=== PATIENT | female | born 1965 | race Two or more races ===

== ENCOUNTER 2016-06-15 07:19 | Emergency (ER) | payer MEDICAID ==
[~2016-06-15] VITALS: Ht 160 cm; Wt 90.7 kg
[2016-06-15 07:58] LABS: Basophils # (auto) 0 uL; Basophils % (auto) 0.5 % (0.0-2.0); Eosinophils # (auto) 0.1 uL; Eosinophils % (auto) 1.6 % (0.0-7.0); Lymphocytes # (auto) 2.5 uL; Lymphocytes % (auto) 31.5 % (10.0-50.0); Mean Corpuscular Hemoglobin 27.7 pg (28.0-32.0); Mean Corpuscular Hgb Conc. 32.3 g/dL (32.0-36.0); Mean Platelet Volume 7.1 fL (7.4-10.4); Monocytes # (auto) 0.5 uL; Monocytes % (auto) 6.5 % (0.0-12.0); Neutrophils # (auto) 4.8 uL; Neutrophils % (auto) 59.9 % (37.0-80.0); Platelet Count (auto) 491 10^3/uL (140-450); Red Cell Distribution Width 15.9 % (11.6-16.0)
[2016-06-15 08:13] LABS: INR 1.01 (0.9-1.15); Partial Thromboplastin Time 25.4 sec (22.64-33.71); Prothrombin Time 10.4 sec (9.37-12.3)
[2016-06-15 08:14] LABS: BUN/Creatinine Ratio 15.2; Bilirubin, Total 0.5 mg/dL (0.2-1.0); Magnesium 2.3 mg/dL (1.6-2.6); Potassium 3.5 mmol/L (3.5-5.1); Total Protein 7.4 g/dL (6.4-8.2)
[2016-06-15 08:26] LABS: B-Type Natriuretic Peptide 7.96 pg/mL (0-100)
[2016-06-15] MEDS ORDERED: ACETAMINOPHEN 325 MG TAB PO ONE (09:30)
[2016-06-15 09:38] LABS: Temperature: 22.7 C (20.0-25.0)
[2016-06-15 09:57] VITALS: BP 133/70
== END 2016-06-15 09:58 | disposition home or self-care (01) ==
LOC: EDUNIT# 07:19 → ER 07:26
DX: R07.89 Other chest pain (principal); M19.90 Unspecified osteoarthritis, unspecified site; Z88.0 Allergy status to penicillin; Z88.1 Allergy status to other antibiotic agents; Z88.6 Allergy status to analgesic agent
CPT/HCPCS: 36415; 71020; 80053; 83735; 83880; 84484; 85025; 85049; 85610; 85730; 93005

== ENCOUNTER 2017-06-20 08:31 | Emergency (ER) | payer MEDICAID ==
[~2017-06-20] VITALS: Ht 160 cm; Wt 86.2 kg
[2017-06-20 08:38] VITALS: BP 150/78
== END 2017-06-20 10:25 | disposition left against medical advice (07) ==
LOC: ER 08:31
DX: F41.9 Anxiety disorder, unspecified (principal); M19.90 Unspecified osteoarthritis, unspecified site; Z88.0 Allergy status to penicillin; Z88.2 Allergy status to sulfonamides; Z88.8 Allergy status to other drugs, medicaments and biological substances; Z53.29 Procedure and treatment not carried out because of patient's decision for other reasons
CPT/HCPCS: 93005